=== PATIENT | female | born 1985 | race Caucasian/White ===

== ENCOUNTER 2021-01-01 12:28 | Emergency (ER) | payer OTHER ==
[~2021-01-01] VITALS: Ht 162.6 cm; Wt 60.8 kg
[2021-01-01] MEDS ORDERED: PROZAC20 MG PO (12:43)
[2021-01-01] MEDS ORDERED: ONDANSETRON ODT8 MG PO (16:40)
== END 2021-01-01 16:50 | disposition home or self-care (01) ==
LOC: ED 12:28
DX: K52.9 Noninfective gastroenteritis and colitis, unspecified (principal); Z79.899 Other long term (current) drug therapy
CPT/HCPCS: 74177; 80053; 81001; 83690; 84703; 85025; 96375; 99284-25; J1170; J1790; J2405; J7030; Q9967